=== PATIENT | male | born 1975 | race Caucasian/White ===

== ENCOUNTER 2024-05-20 07:30 | Emergency (ER) | payer OTHER, BC ==
[~2024-05-20] VITALS: Ht 198.1 cm; Wt 147.3 kg
[2024-05-20] MEDS ORDERED: JANTOVEN2 MG PO (07:43)
[2024-05-20 07:59] VITALS: BP 146/87
== END 2024-05-20 08:00 | disposition home or self-care (01) ==
LOC: ED 07:30
DX: S40.022A Contusion of left upper arm, initial encounter (principal); S39.012A Strain of muscle, fascia and tendon of lower back, initial encounter; V89.2XXA Person injured in unspecified motor-vehicle accident, traffic, initial encounter; Z79.01 Long term (current) use of anticoagulants
CPT/HCPCS: 99283